=== PATIENT | female | born 1935 | race Caucasian/White ===

== ENCOUNTER → 2016-09-02 | Outpatient (CLI) | payer MEDICARE ==
[~2016-09-02] MED LIST: AFRIN 30 ML30 ML NS; ANTIVERT GENERI25 MG PO; ASPIRIN ADULT L81 M2 PO; ATORVASTATIN CA20 MG PO; BACTRIM DS 8001 TAB PO; BISOPROLOL 5MG T5 MG PO; BLOOD PRESSURE MED PO; CALCIUM WITH VI1 TAB PO; CEFTIN 250MG T250 MG PO; CEFUROXIME AXE500 MG PO; CIPRO 500MG TA500 MG PO; CLINDAMYCIN HC300 MG PO; Ciprofloxacin250 MG PO; FEXOFENADINE60 MG PO; FIORICET1 CAP PO; FLOVENT DI50 MCG/ACT; FLUTICASON0.05 MG/A1 NS; KEFLEX 500MG.500 MG PO; MAXZIDE 25 MG-31 TAB PO; MECLIZINE 25MG25 MG PO; MECLIZINE25 MG PO; MEDROL 4MG. DOSE4 MG PO; METHIMAZOLE5 MG PO; MIRALAX17 GM/DOSE PO; MULTI VITAMINS1 TA1 PO; NORVASC 10MG. T10 MG PO; OMEPRAZOLE20 MG PO; PLAVIX75 MG PO; SULINDAC150 MG PO; VICODIN 5/500 T1 TAB PO; VOLTAREN GEL1% TP; XARELTO15 MG PO; ZYRTEC 10MG TAB10 MG PO
--- NOTE | 2016-09-02 15:26 | RADIOLOGY REPORT PS360 ---
PROCEDURE: 2-D M-mode and color Doppler study INDICATIONS FOR THE TEST: Chest pain COPD Heart Murmur Tobacco Smoking Palpitations Fatigue Syncope Edema Hypertension+Diabetes Mellitus Rheumatic Fever SOB GONZALEZ Obesity Hyperlipidemia+ Family History HD Additional History CVA 2013 PATIENT INFORMATION HEIGHT: 64 WEIGHT: 192 GENDER: Female B/P: 110/72 2-D/M-MODE INTERPRETATION: 2-D MEASUREMENTS OBSERVED VALUES IN CMS Right Ventricular Dimension (RVDd) 2.6 Interventricular Septum (Thickness)(IVsd) 1.5 Left Ventricular Internal Dimensions(LVIDd) 5.0 Left Ventricular Posterior Wall (Thickness)(LVPWd) 1.0 Aortic Root 3.4 Aortic Cusp Separation 1.5 Left Atrial Dimensions (LAD) 3.5 2D 1. Left atrium is mildly enlarged, left ventricle is normal size, there is mild concentric left ventricular hypertrophy, visually estimated ejection fraction of 55% with no obvious regional wall motion abnormality. 2. The right atrium and right ventricle are normal size and contractility. 3. The aortic valve is thickened and calcified leaflet continue to display mobility. 4. The mitral valve has mitral calcification, leaflets are minimally thickened and calcified. 5. The tricuspid valve is structurally normal. 6. The pulmonic valve is not well visualized. 7. No significant pericardial effusion noted. DOPPLER INTERROGATION: Doppler interrogation of the aortic mitral and tricuspid valvular presence of mild mitral and tricuspid regurgitation, tricuspid regurgitant jet velocity insufficient for calculation of the right ventricular systolic pressure, grade 1 diastolic dysfunction seen with tissue Doppler evidence of raised left atrial pressure. CONCLUSION: 1. Mildly enlarged left atrium, normal left ventricular size, mild concentric left ventricular hypertrophy, visually estimated ejection fraction 55% with no obvious regional wall motion abnormality. Grade 1 diastolic dysfunction seen with tissue Doppler evidence of raised left atrial pressure. 2. Thickened and calcified aortic valve without aortic stenosis aortic insufficiency. 3. Mild mitral and tricuspid regurgitation. 4. No significant pericardial effusion noted.
== END ==
LOC: RT 10:38
DX: R94.31 Abnormal electrocardiogram [ECG] [EKG] (principal); I48.0 Paroxysmal atrial fibrillation; I10 Essential (primary) hypertension; I42.9 Cardiomyopathy, unspecified; R00.1 Bradycardia, unspecified